=== PATIENT | female | born 1965 | race Caucasian/White ===

== ENCOUNTER → 2023-09-14 08:09 | Outpatient (REF) | payer OTHER, SELFPAY ==
[2023-09-14 15:54] LABS: Mumps Virus IgG Positive; Rubeola (Measles) IgG Positive; Varicella Zoster IgG (VZV) Negative
[2023-09-14 20:22] LABS: Rubella Negative
[2023-09-14 22:20] LABS: Hepatitis B Surface Antibody Negative
[2023-09-16 17:00] LABS: Quantiferon Mitogen minus NIL 9.69 IU/mL; Quantiferon NIL 0.02 IU/mL; Quantiferon TB Gold Plus Negative (Negative)
== END ==
LOC: OHS 08:09
PROVIDERS: ATTENDING PHYSICIAN Nurse Practitioner Family
DX: Z23 Encounter for immunization (principal)
CPT/HCPCS: 36415; 86480; 86706; 86735; 86762; 86765; 86787

== ENCOUNTER → 2024-02-02 07:53 | Outpatient (REF) | payer OTHER, SELFPAY | LOC: HWWDC 07:53 | PROVIDERS: ATTENDING PHYSICIAN Obstetrics & Gynecology; FAMILY PHYSICIAN Family Medicine | DX: Z12.31 Encounter for screening mammogram for malignant neoplasm of breast (principal) | CPT/HCPCS: 77063; 77067 ==

== ENCOUNTER → 2024-02-07 09:02 | Outpatient (REF) | payer OTHER, SELFPAY | LOC: WDC 09:02 | PROVIDERS: ATTENDING PHYSICIAN Obstetrics & Gynecology; FAMILY PHYSICIAN Family Medicine | DX: R92.8 Other abnormal and inconclusive findings on diagnostic imaging of breast (principal) | CPT/HCPCS: 76642 ==

== ENCOUNTER → 2024-02-16 10:11 | Outpatient (REF) | payer OTHER, SELFPAY ==
--- NOTE | 2024-02-16 11:18 | OID.BR.INTR ---
[facility] Navigator - Initial
- -
Date of Contact: 02/16/24
Met with patient. Will follow up as needed per protocol.
== END ==
LOC: WDC 10:11
PROVIDERS: ATTENDING PHYSICIAN Obstetrics & Gynecology
DX: N63.11 Unspecified lump in the right breast, upper outer quadrant (principal)
CPT/HCPCS: 88305; 19083; 77065; A4648

== ENCOUNTER → 2024-10-15 13:08 | Outpatient (REF) | payer OTHER, SELFPAY | LOC: CLAB 13:08 | PROVIDERS: ATTENDING PHYSICIAN Otolaryngology | DX: H65.21 Chronic serous otitis media, right ear (principal) | CPT/HCPCS: 87070 ==

== ENCOUNTER → 2024-12-10 11:36 | Outpatient (REF) | payer OTHER, SELFPAY | LOC: CLAB 11:36 | PROVIDERS: ATTENDING PHYSICIAN Physician Assistant | DX: H66.91 Otitis media, unspecified, right ear (principal) | CPT/HCPCS: 87070 ==

== ENCOUNTER → 2024-12-19 12:26 | Outpatient (REF) | payer OTHER, SELFPAY ==
[2024-12-19 12:46] VITALS: BP_SYST 114
== END ==
LOC: RADI 12:26
PROVIDERS: ATTENDING PHYSICIAN Podiatrist Foot & Ankle Surgery; FAMILY PHYSICIAN Family Medicine
DX: M93.271 Osteochondritis dissecans, right ankle and joints of right foot (principal); M25.571 Pain in right ankle and joints of right foot
CPT/HCPCS: 20606; 76882

== ENCOUNTER → 2025-02-04 16:37 | Outpatient (REF) | payer OTHER, SELFPAY | LOC: WDC 16:37 | PROVIDERS: ATTENDING PHYSICIAN Obstetrics & Gynecology; FAMILY PHYSICIAN Family Medicine | DX: Z12.31 Encounter for screening mammogram for malignant neoplasm of breast (principal) | CPT/HCPCS: 77063; 77067 ==